=== PATIENT | female | born 1945 | race Caucasian/White ===

== ENCOUNTER → 2017-02-26 | Outpatient (CLI) | payer BC, MEDICARE ==
--- NOTE | 2017-02-26 11:12 | Diagnostic Imaging Report ---
Bilateral renal ultrasound. INDICATION: Chronic renal disease. FINDINGS: Right kidney is 8.1 cm, and the left kidney is 7.1 cm in length. There is no hydronephrosis or focal lesion. The urinary bladder appears unremarkable. IMPRESSION: Unremarkable exam. Dictated by: Dictated on workstation # [id number]
== END ==
LOC: RAD 10:30
PROVIDERS: ATTEND Internal Medicine Nephrology
DX: N18.3 Chronic kidney disease, stage 3 (moderate) (principal)
CPT/HCPCS: 76770

== ENCOUNTER → 2022-09-05 | Outpatient (CLI) | payer MEDICARE ==
--- NOTE | 2022-09-05 11:52 | Diagnostic Imaging Report ---
PROCEDURE: US Renal/Bladder. TECHNIQUE: Multiple real-time grayscale images were obtained over the kidneys in various projections bilaterally. INDICATION: Chronic renal disease. COMPARISON: 02/26/2017. FINDINGS: Right: The right kidney measures 9.3 cm in length. Renal cortical thickness and echogenicity are within normal limits. There is prominence of the pelvis without hydronephrosis, likely representing extrarenal pelvis. There is no evidence of calculi, solid focal mass or hydronephrosis. No perinephric fluid collections are identified. Left: The left kidney measures 7.8 cm in length. Renal cortical thickness and echogenicity are within normal limits. There is no evidence of calculi, solid focal mass or hydronephrosis. No perinephric fluid collections are identified. There is no abdominal ascites. Views of the pelvis demonstrate a mildly distended urinary bladder. Both ureteral jets are seen. No large intraluminal filling defect or calculi are identified. A small amount of residual urine is seen on post void imaging. IMPRESSION: 1. No acute renal abnormalities identified. 2. Likely extrarenal pelvis on the right. Dictated by: Dictated on workstation # [id number]
== END ==
LOC: RAD 08:20
PROVIDERS: ATTEND Internal Medicine Nephrology
DX: I12.9 Hypertensive chronic kidney disease with stage 1 through stage 4 chronic kidney disease, or unspecified chronic kidney disease (principal); N18.32 Chronic kidney disease, stage 3b; E11.22 Type 2 diabetes mellitus with diabetic chronic kidney disease; D47.3 Essential (hemorrhagic) thrombocythemia; E21.1 Secondary hyperparathyroidism, not elsewhere classified; M79.89 Other specified soft tissue disorders; D50.9 Iron deficiency anemia, unspecified; D63.1 Anemia in chronic kidney disease; E78.5 Hyperlipidemia, unspecified; F17.210 Nicotine dependence, cigarettes, uncomplicated
CPT/HCPCS: 76770